=== PATIENT | female | born 1980 | race Hispanic/Latino ===

== ENCOUNTER 2020-03-21 10:21 | Inpatient (IN) | payer OTHER ==
[~2020-03-21 10:21] MED LIST: Iopamidol-370 76% 500 ML 1 ML ONE
[2020-03-21 11:08] LABS: ALT (SGPT) 19 U/L (8-55); AST (SGOT) 12 U/L (5-34); Albumin 3.8 g/dL (3.5-5.0); Alkaline Phosphatase 110 U/L (40-110); Anion Gap 16 mmol/L (10-20); BUN (Urea Nitrogen) 7 mg/dL (7.0-18.7); Bilirubin, Total 1.6 mg/dL (0.2-1.2); Calc. Creatinine Clearance 0 mL/min (70-130); Calcium 9.5 mg/dL (7.8-10.44); Carbon Dioxide 26 mmol/L (22-29); Chloride 99 mmol/L (98-107); Estimated GFR-MDRD 75; Globulin 4.1 g/dL (2.4-3.5); Glucose 252 mg/dL (70-105); Lipase Less than 4 U/L (8-78); Potassium 3.5 mmol/L (3.5-5.1); Protein, Total 7.9 g/dL (6.0-8.3); Sodium 137 mmol/L (136-145)
[2020-03-21 11:25] LABS: Band 7 % (5-11); Hemoglobin 14.1 g/dL (12.0-16.0); Lymphocytes 7 % (21-51); MDiff Complete? YES; Mean Corpuscular HGB CONC 32.3 g/dL (32.0-36.0); Mean Corpuscular Hemoglobin 28.5 pg (27.0-31.0); Mean Corpuscular Volume 88.2 fL (78.0-98.0); Mean Platelet Volume 8.5 fL (7.4-10.4); Monocytes 5 % (0-10); Neutrophil 81 % (42-75); Platelet Count 271 thou/uL (130-400); RBC Distribution Width 12.6 % (11.5-14.5); Red Blood Cell (RBC) Count 4.96 mill/uL (4.20-5.40); White Blood Cell (WBC) Count 22.3 thou/uL (4.8-10.8)
[2020-03-21] MEDS ORDERED: cefTRIAXone\\ROCEPHIN 2 GM VIAL ONE (12:15)
[2020-03-21 12:20] LABS: Bilirubin Negative (Negative); Blood, Urine 2+ (Negative); Clarity Extra Turbid (Clear); Glucose, Urine (Dipstick) 100 mg/dL (Negative); Leukocyte 500 Leu/uL (Negative); Nitrite Negative (Negative); Pregnancy Test - Urine (BHCG) Negative (Negative); Pregu Control Background? CLEAR/WHITE (CLR/WHITE); Pregu Control Bar Appear? YES (CONTROL BAR); Protein, Urine (Dipstick) 200 mg/dL (Neg-Trace); Specific Gravity 1.009 (1.002-1.036); Squamous Epithelial 0-3 HPF (0-3); Urobilinogen 6 mg/dL (Less than 2); WBC/HPF Greater than 50 HPF (0-3)
[2020-03-21 12:26] LABS: Bacteria/HPF 4+ HPF (None Seen)
[2020-03-21] MEDS ORDERED: Vancomycin 1.5 GRAM/300 ML BAG 1.5 GM in Premix Bag 1 BAG IVPB SCH ×2 (12:30→14:30)
--- NOTE | 2020-03-21 12:50 | RAD ---
PORTABLE CHEST ONE VIEW: History: Fever, chills. FINDINGS: Heart size and mediastinum are within normal limits. Questionably minimally increased interstitial ch tyson in the right lung base is a somewhat equivocal finding. Clinical correlation regarding cough or any symptoms that would suggest Covid exposure. IMPRESSION: Subtle interstitial change in the right lung base, a somewhat equivocal finding. POS: [facility]
--- NOTE | 2020-03-21 13:14 | CT ---
CT ABDOMEN AND PELVIS PERFORMED WITHOUT CONTRAST ENHANCEMENT: History: Fever, chills, nonproductive cough. FINDINGS: The lung bases show some peripheral ground glass opacities. The possibility of Covid exposure should be a consideration. The liver is borderline in size, measuring 19 cm in length. The spleen, pancreas, and gallbladder reg ions appear unremarkable. Right and left adrenal glands are normal. Right and left kidneys are normal in size. There is perinep hric fat stranding involving the right kidney. There is some minimal prominence to the right collecti ng system, but not grossly dilated. The ureter is not dilated by the perinephric fat stranding does e xtend along a portion of the right ureter. This could indicate a pyelonephritis. The possibility of a passed stone would be another possibility. No significant periaortic or mesenteric adenopathy. The a ppendix is more retrocecal in location. The tip is actually along the inferior margin of the liver. T here is no pelvic lymphadenopathy or mass. IMPRESSION: 1. Some peripheral ground glass lung opacities. This pattern could indicate the possibility of Covid exposure. 2. Moderate perinephric fat stranding involving the right kidney. Also some of the fat stranding exte nding along the proximal right ureter. This could be the sequellae of a passed calculus or related to pyelonephritis. No stone is seen. 3. Incidental note is made of old left sided rib fractures and bilateral parts defects at L4-5 and L5 -S1 with a very mild spondylolithsis of L5 on S1. 4. These findings were discussed with Dr. Becker. POS: [facility] [place]
[2020-03-21] MEDS ORDERED: HumaLOG 300 UNITS/3 ML VIAL SC PRN (13:46)
[2020-03-21] MEDS ORDERED: Dextrose 5% in Water 1,000 ML IV PRN (13:46)
[2020-03-21] MEDS ORDERED: Senokot S 8.6-50 MG TAB PO PRN (13:46)
[2020-03-21] MEDS ORDERED: Sodium Chloride 0.9% 1,000 ML IV SCH (13:46)
[2020-03-21] MEDS ORDERED: Guaifenesin DM 100-10/5 ML UDCUP PO PRN (13:46)
[2020-03-21] MEDS ORDERED: Dextrose 50% Abboject 50 ML SYRINGE SLOW IVP PRN (13:46)
[2020-03-21] MEDS ORDERED: Bisacodyl 10 MG SUPP PR PRN (13:46)
[2020-03-21] MEDS ORDERED: Ondansetron PF 4 MG/2 ML Vial IVP PRN (13:46)
[2020-03-21] MEDS ORDERED: Vancomycin HCl 1.5 GM in Sodium Chloride 0.9% 250 ML 300 ML IVPB SCH (14:15)
[2020-03-21 14:26] LABS: Platelet Count 259 thou/uL (130-400)
[2020-03-21 14:28] LABS: Fibrinogen 891 mg/dL (253-463)
[2020-03-21 14:29] LABS: INR-International Normal Ratio 1.1; PTT 27.9 SEC (22.9-36.1); Prothrombin Time 14.2 SEC (12.0-14.7)
[2020-03-21] MEDS ORDERED: Acetaminophen 325 MG/10.15 ML UDCUP ONE (14:45)
[2020-03-21 14:48] LABS: FSP-Qualitative ABNORMAL (Normal); FSP-Semiquantitative >=5 & <20 mcg/mL (Less than 5)
[2020-03-21] MEDS ORDERED: Furosemide 40 MG/4 ML VIAL ONE (15:03)
[2020-03-21] MEDS ORDERED: Ibuprofen 100 MG/5 ML UDCUP ONE (15:03)
--- NOTE | 2020-03-21 15:41 | CT ---
CTA Angio Chest W WO Con 03/21/2020 2:55 PM Indication: 40-year-old female with possible COVID infection, dyspnea and fever Technique: Multiple CTA images were obtained of the thorax with IV contrast. 3-D rendering: MIP jeffrey nstructed images were created and reviewed. Comparison: No relevant prior studies available. Findings: Pulmonary arteries: No central or segmental pulmonary embolus is evident. Heart and Aorta: Normal appearing. Mediastinum:There are mildly prominent lymph nodes seen within the mediastinum both hilar regions. Mo re prominent lymph nodes within the mediastinum is seen within the subcarinal region measuring 1.3 cm. There is a 1.2 cm right suprahilar hilar lymph node. There is a 1 cm left hilar lymph node. Lungs:There are peripheral subpleural groundglass opacity seen within both lungs. No airspace consoli dation is evident. Pleural space: Clear. Upper Abdomen: There is prominent fatty infiltration of the liver. There is hepatosplenomegaly. Osseous Structures: No acute osseous abnormality. Soft tissues:No abnormality. Other findings:None. Impression: 1. No central or segmental pulmonary embolus. 2. Peripheral subpleural groundglass opacities within both lungs can be seen with atypical infectious processes such as viral pneumonia. This is a pattern that can be seen with COVID infection. Recommend appropriate testing. 3. Mildly prominent lymph nodes within the mediastinum and both hilar regions are suspected to be yolanda ctive in nature. 4. Hepatosplenomegaly with fatty infiltration.
--- NOTE | 2020-03-21 16:19 | HP ---
REASON FOR ADMISSION: Sepsis, urinary tract infection, rule out COVID. HISTORY OF PRESENTING ILLNESS: Please note the entire history was obtained with Official Kyrgyz translation service. The patient complains of fever, chills, and suprapubic pain from yesterday evening. This got worse to the point the patient came to the emergency room here. On arrival, the patient had a temperature of 100.3, which gabrielle up to 105 in a span of 4 hours. No cough or expectoration. No other family members are sick in the house. She apparently got exposed to someone with COVID, this was relayed by a concerned family member 2 hours after me speaking to the ER nurse that the family got exposed to somebody who is COVID positive. PAST MEDICAL AND SURGICAL HISTORY: Diabetes mellitus type 2. No prior surgical history. CURRENT MEDICATION: Metformin 1000 mg twice daily. ALLERGIES: NO KNOWN DRUG ALLERGIES. PERSONAL HISTORY: Does not abuse alcohol or drugs. No history of smoking. FAMILY HISTORY: Both parents are living and healthy. The patient lives with her and 3 children. CODE STATUS: Full. REVIEW OF SYSTEMS: CONSTITUTIONAL: Negative for weight loss or gain, ability to conduct usual activities. SKIN: Negative for rash, itching. EYES: Negative for double vision, pain. ENT/MOUTH: Negative for nose bleeding, neck stiffness, pain, tenderness. CARDIOVASCULAR: Negative for palpitations, dyspnea on exertion, orthopnea. RESPIRATORY: Negative for shortness of breath, wheezing, cough, hemoptysis, fever or night sweats. GASTROINTESTINAL: Negative for poor appetite, abdominal pain, heartburn, nausea , vomiting, constipation, or diarrhea. GENITOURINARY: Negative for urgency, frequency, dysuria, nocturia. MUSCULOSKELETAL: Negative for pain, swelling. NEUROLOGIC/PSYCHIATRIC: Negative for anxiety, depression. ALLERGY/IMMUNOLOGIC: Negative for skin rash, bleeding tendency. PHYSICAL EXAMINATION: GENERAL: The patient is a 40-year-old female who is currently not in any acute distress. VITAL SIGNS: Blood pressure 130/86, pulse 140 per minute, respiratory rate 18, temperature currently 105 degrees. Saturating 95% on room air. NECK: Supple. No elevated JVD. HEENT: Eyes; extraocular muscles intact. Pupils reacting to light. Oral cavity, mucous membranes are dry. No exudates or congestion. CARDIOVASCULAR: S1 and S2 heard, regular rhythm. RESPIRATORY: Air entry 1+ bilateral. No rales or rhonchi. ABDOMEN: Soft. Bowel sounds heard. No tenderness, rigidity, or guarding. No CV angle tenderness. EXTREMITIES: No peripheral edema or calf tenderness. VASCULAR SYSTEM: Peripheral pulses 1+ bilateral. No ischemic ulcerations or gangrene. CENTRAL NERVOUS SYSTEM: No gross focal deficits noted. The patient is alert, awake, oriented well. PSYCHIATRIC: The patient's mood is euthymic. No hallucinations or delusions. LABORATORY DATA: CT of the abdomen and pelvis without contrast done shows peripheral ground-glass lung opacities suggestive of possible COVID exposure. Moderate perinephric fat stranding in the right kidney, this could be a sequelae of her recent passed stone/pyelonephritis. Old left-sided rib fractures seen. CT angio of chest done showed no evidence of PE. There are peripheral subpleural ground-glass opacities within both lungs, seen with atypical infectious process such as viral pneumonia. There is hepatosplenomegaly with fatty infiltration. White count of 22, H and H 14 and 43, platelet count 271 with 81% neutrophils, 7% bands. PT/INR, PTT within normal limits. D-dimer was 3.30. Serum glucose 252, BUN 7, creatinine 0.8. Lactic acid 3.6. Ferritin is 328. CRP 38. AST, ALT, and alkaline phosphatase within normal limits. Total bilirubin is 1.6, albumin is 3.8. TSH 1.40. Lipase is less than 4. UA is strongly positive for UTI. EKG done shows sinus tach at 134 beats per minute. There are signs of LVH seen. CLINICAL IMPRESSION AND PLAN: The patient will be admitted to the COVID unit on telemetry for sepsis, urinary tract infection, and to rule out COVID. She will be on ceftriaxone and vancomycin. CT abdomen does not show any current urinary tract obstruction. We will follow up on the blood and urine cultures that have been obtained and viral PCR for COVID-19. She will be on Lantus 10 units subcu twice daily along with metformin 1000 mg twice daily. She has received a total of 2.5 L of IV fluid in the ER and we will hold off on further IV fluids in view of the patient having tachypnea with suspicion for COVID-19. We will continue to closely monitor her on telemetry as well. Addendum: Her daughter is positive for COVID 19, this information was obtained after talking to family. Job ID: [id number] [facility]
[2020-03-21] MEDS ORDERED: Azithromycin 500 MG in Sodium Chloride 0.9% 250 ML 250 ML IVPB SCH (17:00)
[2020-03-21 17:14] LABS: Lactic Acid 1.8 mmol/L (0.5-2.2)
[2020-03-21 18:20] VITALS: BMI 35.9
[2020-03-21] MEDS: metFORMIN 500 MG TAB PO SCH (19:24)
[2020-03-21] MEDS: Azithromycin 500 MG in Sodium Chloride 0.9% 250 ML 250 ML IVPB SCH (19:24)
[2020-03-21] MEDS: Famotidine 20 MG TAB PO SCH (20:57)
[2020-03-21] MEDS: Insulin Glargine 10 UNITS in Pre-Filled Syringe 1 EACH SC SCH (20:57)
[2020-03-22 04:11] LABS: #Lymphocytes 1.1 thou/uL (1.20-3.40); #Monocytes 1.2 thou/uL (0.11-0.59); #Neutrophils 16.5 thou/uL (1.40-6.50); %Basophils 0.1 % (0.0-1.0); %Eosinophils 0.3 % (0.0-10.0); %Lymphocytes 5.9 % (21.0-51.0); %Monocytes 6.6 % (0.0-10.0); %Neutrophils 87.2 % (42.0-75.0); Hemoglobin 11.7 g/dL (12.0-16.0); Mean Corpuscular HGB CONC 32.9 g/dL (32.0-36.0); Mean Corpuscular Hemoglobin 29.2 pg (27.0-31.0); Mean Corpuscular Volume 88.7 fL (78.0-98.0); Mean Platelet Volume 8.7 fL (7.4-10.4); Platelet Count 185 thou/uL (130-400); RBC Distribution Width 12.4 % (11.5-14.5); Red Blood Cell (RBC) Count 4.02 mill/uL (4.20-5.40); White Blood Cell (WBC) Count 18.9 thou/uL (4.8-10.8)
[2020-03-22 04:32] LABS: ALT (SGPT) 15 U/L (8-55); AST (SGOT) 13 U/L (5-34); Albumin 3.1 g/dL (3.5-5.0); Alkaline Phosphatase 94 U/L (40-110); Anion Gap 12 mmol/L (10-20); BUN (Urea Nitrogen) 9 mg/dL (7.0-18.7); Bilirubin, Total 1.1 mg/dL (0.2-1.2); Calc. Creatinine Clearance 145 mL/min (70-130); Calcium 8.5 mg/dL (7.8-10.44); Carbon Dioxide 24 mmol/L (22-29); Cardiac Risk 1.9 (Less than 4.5); Chloride 103 mmol/L (98-107); Cholesterol 105 mg/dl (< 200 Desired); Estimated GFR-MDRD 83; Globulin 3.3 g/dL (2.4-3.5); Glucose 217 mg/dL (70-105); HDL Cholesterol 54 mg/dL (>60 Neg Risk); LDL Cholesterol, Calculated 39 mg/dL; Potassium 3.1 mmol/L (3.5-5.1); Protein, Total 6.4 g/dL (6.0-8.3); Sodium 136 mmol/L (136-145); Triglycerides 61 mg/dL (Less than 150)
[2020-03-22] MEDS: HumaLOG 300 UNITS/3 ML VIAL SC PRN ×2 (06:09→11:25)
[2020-03-22] MEDS: metFORMIN 500 MG TAB PO SCH ×2 (07:20→17:56)
[2020-03-22] MEDS: Famotidine 20 MG TAB PO SCH ×2 (07:21→21:01)
[2020-03-22] MEDS: Enoxaparin Sodium 40 MG/0.4 ML SYRINGE SC SCH (07:21)
[2020-03-22] MEDS: Acetaminophen 325 MG TAB PO PRN ×4 (07:45→21:21)
[2020-03-22] MEDS: Insulin Glargine 10 UNITS in Pre-Filled Syringe 1 EACH SC SCH ×2 (08:50→21:41)
[2020-03-22] MEDS ORDERED: Potassium Phosphate 12 MMOL in Sodium Chloride 0.9% 250 ML 250 ML IV PRN (09:01)
[2020-03-22] MEDS ORDERED: Potassium Phosphate 9 MMOL in Sodium Chloride 0.9% 100 ML IVPB PRN (09:01)
[2020-03-22] MEDS ORDERED: Potassium Phosphate 15 MMOL in Sodium Chloride 0.9% 250 ML 250 ML IV PRN (09:01)
[2020-03-22] MEDS ORDERED: Potassium Chloride 20 MEQ TAB PO PRN (09:01)
[2020-03-22] MEDS ORDERED: Potassium Chloride 40 MEQ in Sodium Chloride 0.9% 250 ML 250 ML IVPB PRN (09:01)
[2020-03-22] MEDS ORDERED: CCU ELECTROLYTE REPLACEMENT PROTOCOL FS PRN (09:01)
[2020-03-22] MEDS ORDERED: Magnesium 2 GM/50 ML 2 GM in Premix Bag 1 BAG IVPB PRN (09:01)
[2020-03-22] MEDS ORDERED: Magnesium Oxide 400 MG TAB PO PRN ×2 (09:01)
[2020-03-22] MEDS ORDERED: Potassium Chloride 40 MEQ in Premix Bag 1 BAG IVPB PRN (09:01)
[2020-03-22] MEDS ORDERED: PHOS-NAK 1 PKT PACK PO PRN ×2 (09:01)
--- NOTE | 2020-03-22 10:33 | CON ---
DATE OF CONSULTATION: HISTORY OF PRESENT ILLNESS: A 40-year-old female speaks no Vincentian, entire information obtained by the ER information, presented to the ER with fever, chills, nonproductive cough, nausea, vomiting of 3 days' duration. Several family members had been sick. She has a coronavirus serology done, which is still pending. Initial chest x-ray was normal. CT chest did reveal peripheral nonspecific infiltrates. She denies any difficulty breathing. She is having some vague abdominal discomfort from what I am told. PAST MEDICAL HISTORY: Diabetes. PAST SURGICAL HISTORY: Apparently, none. CHRONIC MEDICATIONS: Apparently includes metformin 1000 twice a day. ALLERGIES: NONE. REVIEW OF SYSTEMS: Otherwise, unremarkable. PHYSICAL EXAMINATION: VITAL SIGNS: Temperature is still 101.3, blood pressure , pulse 118, respiratory rate 20, saturations 96%. CHEST: No wheezing or crackles. CARDIAC: Normal S1, S2. No gallops. ABDOMEN: No masses. LABORATORY DATA: White count 18,000, H and H 11 and 35, platelet count is normal. D-dimer 330. C-reactive protein is 38. IMAGING STUDIES: CT, peripheral ground glass bilateral. CT abdomen shows some perinephric stranding in the right kidney, maybe pyelonephritis. Some left-sided rib fractures. ASSESSMENT: 1. Sepsis syndrome, urinary tract infection. 2. Rule out pneumonia, coronavirus. 3. Diabetes. PLAN: 1. Zithromax is on board along with ceftriaxone and vancomycin. 2. Continue supportive care. Await cultures and serology. We will follow. Consultation note, 70 minutes, 50% direct patient care. Job ID: [id number]
--- NOTE | 2020-03-22 10:47 | PDOC.HOSPP ---
- Subjective Encounter Date: 03/22/20 Encounter Time: 08:40 Subjective: no sob or cough abd pain is better, no nausea or vomiting is tolerating oral diet - Objective Vital Signs & Weight: Vital Signs (12 hours) Temp Pulse Ox 03/22/20 08:00 97 03/22/20 07:00 101.3 F H 03/22/20 04:00 99.6 F 03/22/20 00:00 98.0 F Weight Weight 209 lb 7.026 oz Most Recent Monitor Data Heart Rate from ECG 109 NIBP 106/78 NIBP BP-Mean 87 Respiration from ECG 17 SpO2 95 I&O: 03/21/20 03/22/20 03/23/20 06:59 06:59 06:59 Intake Total 250 0 Output Total 900 300 Balance -650 -300 Result Diagrams: 03/22/20 03:52 03/22/20 03:52 Additional Labs: Accuchecks 03/21/20 21:06 POC Glucose 346 H Hospitalist ROS - Medication Medications: Active Medications Generic Name Dose Route Start Last Admin Trade Name Freq PRN Reason Stop Dose Admin Acetaminophen 650 mg 03/21/20 13:46 03/22/20 07:47 Tylenol PO 650 mg Q4H PRN Administration Headache/Fever/Mild Pain (1-3) Enoxaparin Sodium 40 mg 03/22/20 09:00 03/22/20 07:21 Lovenox SC 40 mg 0900 YADIRA Administration Famotidine 20 mg 03/21/20 21:00 03/22/20 07:21 Pepcid PO 20 mg BID YADIRA Administration Insulin Glargine 10 units/ 0.1 mls @ 0 mls/hr 03/21/20 21:00 03/22/20 08:50 Miscellaneous Medication SC 0.1 mls BID YADIRA Administration Azithromycin 500 mg/ Sodium 250 mls @ 250 mls/hr 03/21/20 20:00 03/21/20 19: 24 Chloride IVPB 250 mls 2000 YADIRA Administration Insulin Human Lispro 0 units 03/21/20 13:46 03/22/20 06:09 Humalog SC 6 unit .AGGRESSIVE SLIDING PRN Administration Aggressive Correctional Scale Insulin Human Lispro 0 units 03/21/20 13:46 03/21/20 20:58 Humalog SC 4 unit .BEDTIME SLIDING SC PRN Administration Bedtime Correctional Scale Metformin HCl 1,000 mg 03/21/20 17:00 03/22/20 07:20 Glucophage PO 1,000 mg BID-WM YADIRA Administration - Exam General Appearance: awake alert Eye: PERRL, anicteric sclera ENT: no oropharyngeal lesions, moist mucosa Neck: supple, no JVD Heart: RRR, no murmur Respiratory: no wheezes, no rales Gastrointestinal: soft, non-distended, normal bowel sounds, no guarding, no rigidity Extremities: no cyanosis, no edema Neurological: cranial nerve grossly intact, no focal deficits Psychiatric: normal affect, A&O x 3 Hosp A/P (1) Sepsis Code(s): A41.9 - SEPSIS, UNSPECIFIED ORGANISM Status: Acute Qualifiers: Sepsis type: sepsis due to unspecified organism (2) UTI (urinary tract infection) Status: Acute Qualifiers: Urinary tract infection type: acute cystitis Hematuria presence: without hematuria Qualified Code(s): N30.00 - Acute cystitis without hematuria (3) PNA (pneumonia) Code(s): J18.9 - PNEUMONIA, UNSPECIFIED ORGANISM Status: Suspected Qualifiers: Pneumonia type: due to unspecified organism Laterality: bilateral (4) DM type 2 (diabetes mellitus, type 2) Status: Chronic Qualifiers: Diabetes mellitus meterman insulin use: without meterman use (5) Dyslipidemia Code(s): E78.5 - HYPERLIPIDEMIA, UNSPECIFIED Status: Chronic (6) Obesity (BMI 30-39.9) Code(s): E66.9 - OBESITY, UNSPECIFIED Status: Chronic - Plan is on ceftriaxone, zithromax and vanc no cough or expectoration or sob this am continue humalog coverage, lantus for now electrolyte replacement blood cultures are growing gm -ve rods unlikely to have covid 19, await serology, if covid 19 is-ve, dc droplet and airborne precautions and zithromax hemostable, may transfer to covid unit on telemetry if ccu bed is needed
[2020-03-22] MEDS ORDERED: Vancomycin 1 GM in Premix Bag 1 BAG IVPB SCH ×2 (11:00→21:00)
[2020-03-22] MEDS: cefTRIAXone\\ROCEPHIN 2 GM in Sodium Chloride 0.9% 100 ML IVPB SCH (11:01)
[2020-03-22] MEDS ORDERED: Azithromycin 500 MG in Sodium Chloride 0.9% 250 ML 250 ML IVPB SCH (17:00)
[2020-03-22] MEDS: Azithromycin 500 MG in Sodium Chloride 0.9% 250 ML 250 ML IVPB SCH (21:00)
[2020-03-23] MEDS: Acetaminophen 325 MG TAB PO PRN (04:48)
[2020-03-23] MEDS: HumaLOG 300 UNITS/3 ML VIAL SC PRN ×2 (04:53→12:38)
[2020-03-23 05:43] LABS: #Eosinphils 0.1 thou/uL (0.0-0.7); #Lymphocytes 2.4 thou/uL (1.20-3.40); #Monocytes 1.3 thou/uL (0.11-0.59); %Eosinophils 0.8 % (0.0-10.0); %Lymphocytes 14.1 % (21.0-51.0); %Monocytes 7.5 % (0.0-10.0); %Neutrophils 77.6 % (42.0-75.0); Hemoglobin 12.4 g/dL (12.0-16.0); Mean Corpuscular HGB CONC 33.2 g/dL (32.0-36.0); Mean Corpuscular Hemoglobin 29.4 pg (27.0-31.0); Mean Corpuscular Volume 88.7 fL (78.0-98.0); Mean Platelet Volume 9.2 fL (7.4-10.4); Platelet Count 212 thou/uL (130-400); RBC Distribution Width 12.3 % (11.5-14.5); White Blood Cell (WBC) Count 16.8 thou/uL (4.8-10.8)
[2020-03-23 06:02] LABS: ALT (SGPT) 15 U/L (8-55); AST (SGOT) 17 U/L (5-34); Albumin 3.3 g/dL (3.5-5.0); Alkaline Phosphatase 120 U/L (40-110); Anion Gap 17 mmol/L (10-20); BUN (Urea Nitrogen) 10 mg/dL (7.0-18.7); Bilirubin, Total 0.7 mg/dL (0.2-1.2); Calc. Creatinine Clearance 132 mL/min (70-130); Calcium 9.2 mg/dL (7.8-10.44); Carbon Dioxide 21 mmol/L (22-29); Chloride 102 mmol/L (98-107); Estimated GFR-MDRD 75; Globulin 3.9 g/dL (2.4-3.5); Glucose 194 mg/dL (70-105); Potassium 3.4 mmol/L (3.5-5.1); Protein, Total 7.2 g/dL (6.0-8.3); Sodium 137 mmol/L (136-145)
[2020-03-23] MEDS: Enoxaparin Sodium 40 MG/0.4 ML SYRINGE SC SCH (08:40)
[2020-03-23] MEDS: metFORMIN 500 MG TAB PO SCH ×2 (08:41→17:22)
[2020-03-23] MEDS: Insulin Glargine 10 UNITS in Pre-Filled Syringe 1 EACH SC SCH ×2 (08:41→20:47)
[2020-03-23] MEDS: Famotidine 20 MG TAB PO SCH ×2 (08:41→20:46)
[2020-03-23] MEDS ORDERED: Acetaminophen 500 MG TAB PO PRN (08:48)
[2020-03-23] MEDS ORDERED: Ibuprofen 600 MG TAB PO PRN (08:48)
--- NOTE | 2020-03-23 09:30 | PRG ---
DATE OF SERVICE: 03/23/2020 SUBJECTIVE: This morning, she is awake, alert, responsive, in no distress. OBJECTIVE: VITAL SIGNS: Temperature was 101.7 yesterday and 98 this morning, pulse 83, respirations 20, saturations are 98% on room air, blood pressure 117/75. CHEST: Reveals a questionable right-sided infiltrate. She has no wheezing or crackles. CARDIAC: Normal S1 and S2. No gallops. ABDOMEN: Soft. LABORATORY DATA: White count 16,000. Urine is growing E coli. ASSESSMENT: 1. Escherichia coli urinary tract infection, sensitive to present antibiotic. 2. Questionable pneumonia, coronavirus positive. PLAN: We will put on Maxipime for coronavirus and ceftriaxone for UTI. Pain relief. Supportive care. We will follow. Job ID: [id number]
--- NOTE | 2020-03-23 09:32 | RAD ---
PORTABLE CHEST: DATE: 03/23/2020. PROVIDED CLINICAL HISTORY: Pneumonia. FINDINGS: Comparison 03/21/2020. The cardiac silhouette appears enlarged, which may be at least partially on th e basis of cortical technique. Airspace disease in the lateral right lower lung zone is demonstrated . No evidence for lobar consolidation, pleural fluid, or pneumothorax. IMPRESSION: Airspace disease at the lateral right lung base, compatible with provided clinical history of pneumon ia. POS: [facility]
--- NOTE | 2020-03-23 10:35 | PDOC.HOSPP ---
- Subjective Encounter Date: 03/23/20 Encounter Time: 07:25 Subjective: no sob or palp is ambulating in room and eating well no abd pain or nausea - Objective Vital Signs & Weight: Vital Signs (12 hours) Temp Pulse Resp BP Pulse Ox 03/23/20 08:40 98.2 F 83 20 117/75 03/23/20 08:35 95 03/23/20 07:00 101.7 F H 03/23/20 04:30 99.3 F 112 H 20 128/81 97 03/23/20 00:00 99.8 F H 96 20 120/70 Weight Weight 209 lb 7.026 oz Most Recent Monitor Data Heart Rate from ECG 133 NIBP 141/94 NIBP BP-Mean 109 Respiration from ECG 21 SpO2 97 I&O: 03/22/20 03/23/20 03/24/20 06:59 06:59 06:59 Intake Total 250 1740 Output Total 900 600 Balance -650 1140 Result Diagrams: 03/23/20 05:31 03/23/20 05:31 Additional Labs: Accuchecks 03/23/20 03/22/20 03/22/20 04:49 21:21 16:40 POC Glucose 163 H 179 H 187 H 03/22/20 11:25 POC Glucose 196 H Hospitalist ROS - Medication Medications: Active Medications Generic Name Dose Route Start Last Admin Trade Name Freq PRN Reason Stop Dose Admin Acetaminophen 650 mg 03/21/20 13:46 03/23/20 04:48 Tylenol PO 650 mg Q4H PRN Administration Headache/Fever/Mild Pain (1-3) Enoxaparin Sodium 40 mg 03/22/20 09:00 03/23/20 08:40 Lovenox SC 40 mg 0900 YADIRA Administration Famotidine 20 mg 03/21/20 21:00 03/23/20 08:41 Pepcid PO 20 mg BID YADIRA Administration Ceftriaxone Sodium 2 gm/ 100 mls @ 200 mls/hr 03/22/20 12:00 03/22/20 11:01 Sodium Chloride IVPB 100 mls 1200 YADIRA Administration Insulin Glargine 10 units/ 0.1 mls @ 0 mls/hr 03/21/20 21:00 03/23/20 08:41 Miscellaneous Medication SC 0.1 mls BID YADIRA Administration Azithromycin 500 mg/ Sodium 250 mls @ 250 mls/hr 03/21/20 20:00 03/22/20 21: 00 Chloride IVPB 250 mls 2000 YADIRA Administration Insulin Human Lispro 0 units 03/21/20 13:46 03/23/20 04:53 Humalog SC 3 unit .AGGRESSIVE SLIDING PRN Administration Aggressive Correctional Scale Insulin Human Lispro 0 units 03/21/20 13:46 03/21/20 20:58 Humalog SC 4 unit .BEDTIME SLIDING SC PRN Administration Bedtime Correctional Scale Metformin HCl 1,000 mg 03/21/20 17:00 03/23/20 08:41 Glucophage PO 1,000 mg BID-WM YADIRA Administration Ondansetron HCl 4 mg 03/21/20 13:46 03/23/20 05:52 Zofran IVP 4 mg Q6H PRN Administration Nausea/Vomiting Sodium Chloride 10 ml 03/23/20 09:00 03/23/20 09:05 Flush - Normal Saline IVF 10 ml Q12HR YADIRA Administration - Exam General Appearance: awake alert Eye: PERRL, anicteric sclera ENT: no oropharyngeal lesions, moist mucosa Neck: supple, no JVD Heart: RRR, no murmur Respiratory: no wheezes, no rales, rhonchi Gastrointestinal: soft, non-tender, non-distended, normal bowel sounds Extremities: no cyanosis, no edema Neurological: cranial nerve grossly intact, no focal deficits Psychiatric: normal affect, A&O x 3 Hosp A/P (1) Sepsis Code(s): A41.9 - SEPSIS, UNSPECIFIED ORGANISM Status: Acute Qualifiers: Sepsis type: Escherichia coli Sepsis acute organ dysfunction status: with acute organ dysfunction Severe sepsis acute organ dysfunction type: acute respiratory failure Acute respiratory failure type: with hypoxia Severe sepsis shock status: without septic shock Qualified Code(s): A41.51 - Sepsis due to Escherichia coli [E. coli]; R65.20 - Severe sepsis without septic shock; J96.01 - Acute respiratory failure with hypoxia (2) UTI (urinary tract infection) Status: Acute Qualifiers: Urinary tract infection type: acute cystitis Hematuria presence: without hematuria Qualified Code(s): N30.00 - Acute cystitis without hematuria (3) DM type 2 (diabetes mellitus, type 2) Status: Chronic Qualifiers: Diabetes mellitus shelter insulin use: without shelter use (4) Dyslipidemia Code(s): E78.5 - HYPERLIPIDEMIA, UNSPECIFIED Status: Chronic (5) Obesity (BMI 30-39.9) Code(s): E66.9 - OBESITY, UNSPECIFIED Status: Chronic (6) Pneumonia due to COVID-19 virus Code(s): U07.1 - COVID-19; J12.89 - OTHER VIRAL PNEUMONIA Status: Acute (7) E coli bacteremia Code(s): R78.81 - BACTEREMIA; B96.20 - UNSP ESCHERICHIA COLI THE CAUSE OF DISEASES CLASSD ELSWHR Status: Acute - Plan is on ceftriaxone, zithromax no cough or expectoration or sob, mild rhonchi on clinical exam continue humalog coverage, lantus, metformin for now electrolyte replacement hemostable to lay on either side or prone while sleeping. to ambulate and sit in chair as tolerated
[2020-03-23] MEDS: cefTRIAXone\\ROCEPHIN 2 GM in Sodium Chloride 0.9% 100 ML IVPB SCH (12:20)
--- NOTE | 2020-03-23 17:51 | CON ---
DATE OF CONSULTATION: 03/23/2020 REASON FOR CONSULTATION: COVID plus a bacteremia with UTI. HISTORY OF PRESENT ILLNESS: A 40-year-old with history of type 2 diabetes, who at the beginning of the month started having coughing spells and intermittent fever. She was afraid that she had COVID, but did not get tested because she was concerned about the disease and did not want it to be identified as having it, so ended up developing additional symptoms including dysuria and sensation of abdominal fullness and fever, which persisted, so she came to the emergency room and was tested positive for COVID. In addition to that, she has bacteremia as described below. She denies headaches. The cough has subsided significantly. She is not dyspneic or chest pain. Does not have diarrhea. No joint symptoms or myalgias. PAST MEDICAL HISTORY: 1. Type 2 diabetes. 2. Obesity. SOCIAL HISTORY: She has 3 children. She is , lives in the area. Does not work. Her kids work at [employer] and other fast food places. She does not smoke. Does not drink. No drug use. ALLERGIES: NONE. FAMILY HISTORY: Diabetes type 2. CURRENT MEDICATIONS: 1. Tylenol. 2. Azithromycin. 3. Ceftriaxone. 4. Lovenox. 5. Pepcid. 6. Insulin. PHYSICAL EXAMINATION: VITAL SIGNS: T-max 101.7 recently, blood pressure 134/88, pulse 91, respirations 20, and O2 saturation 97. SKIN: Normal. No lymphadenopathy. HEENT: Ocular movements conjugate. Sclerae white. Pupils are equal. Oral cavity normal. NECK: Supple. No jugular vein distention. LUNGS: Symmetric with clear breath sounds. HEART: S1 and S2. Regular rate. ABDOMEN: Mild tenderness in mostly suprapubic area. EXTREMITIES: No edema. Pulses are normal in lower extremities. NEUROLOGIC: Nonfocal including cognitive function. LABORATORY DATA: Last sodium 137, potassium 3.4, and creatinine 0.83. Liver profile with alkaline phosphatase 120, transaminases and bilirubin are normal, and albumin 3.3. Urinalysis with greater than 50 wbc's. COVID-19 PCR positive. WBC count was 22.3 on arrival and now 16.8, hemoglobin 12.4, and platelets 212. Chest x-ray with airspace disease in the right lung base. She had an abdomen and pelvis CT a day before yesterday with perinephric fat stranding on the right side and the she has ground-glass lung opacities. Chest CT angio was negative. ASSESSMENT: 1. Type 2 diabetes. 2. COVID-19 pneumonia, mild. 3. Cystitis with pyelonephritis and bacteremia with a quite susceptible strain of Escherichia coli. DISCUSSION: The COVID-19 pneumonia is mild, although some patients may deteriorate. In her case, she has been having symptoms now for quite a few weeks, at least 2 weeks, so I do not expect her to deteriorate further, so as soon as her urinary tract issue is treated, then she is better than she can go home on oral quinolones with the usual duration of therapy, there is no evidence of obstruction or neurogenic bladder identified at the moment. Job ID: [id number]
[2020-03-24 05:23] LABS: #Eosinphils 0.2 thou/uL (0.0-0.7); #Lymphocytes 1.9 thou/uL (1.20-3.40); #Monocytes 1.3 thou/uL (0.11-0.59); #Neutrophils 5.9 thou/uL (1.40-6.50); %Basophils 0.5 % (0.0-1.0); %Eosinophils 1.7 % (0.0-10.0); %Lymphocytes 20.3 % (21.0-51.0); %Monocytes 14.1 % (0.0-10.0); %Neutrophils 63.4 % (42.0-75.0); Hemoglobin 11.2 g/dL (12.0-16.0); Mean Corpuscular Hemoglobin 28.9 pg (27.0-31.0); Mean Corpuscular Volume 87.6 fL (78.0-98.0); Platelet Count 198 thou/uL (130-400); RBC Distribution Width 12.4 % (11.5-14.5); Red Blood Cell (RBC) Count 3.88 mill/uL (4.20-5.40); White Blood Cell (WBC) Count 9.2 thou/uL (4.8-10.8)
[2020-03-24 05:43] LABS: ALT (SGPT) 14 U/L (8-55); AST (SGOT) 13 U/L (5-34); Alkaline Phosphatase 104 U/L (40-110); Anion Gap 13 mmol/L (10-20); BUN (Urea Nitrogen) 9 mg/dL (7.0-18.7); Bilirubin, Total 0.4 mg/dL (0.2-1.2); Calc. Creatinine Clearance 145 mL/min (70-130); Calcium 8.9 mg/dL (7.8-10.44); Carbon Dioxide 25 mmol/L (22-29); Chloride 101 mmol/L (98-107); Estimated GFR-MDRD 83; Globulin 3.7 g/dL (2.4-3.5); Glucose 121 mg/dL (70-105); Potassium 3.2 mmol/L (3.5-5.1); Protein, Total 6.7 g/dL (6.0-8.3); Sodium 136 mmol/L (136-145)
[2020-03-24] MEDS: metFORMIN 500 MG TAB PO SCH ×2 (08:39→17:33)
[2020-03-24] MEDS: Famotidine 20 MG TAB PO SCH ×2 (08:40→21:17)
[2020-03-24] MEDS: Insulin Glargine 10 UNITS in Pre-Filled Syringe 1 EACH SC SCH (08:40)
[2020-03-24] MEDS: Enoxaparin Sodium 40 MG/0.4 ML SYRINGE SC SCH (08:40)
--- NOTE | 2020-03-24 10:05 | PRG ---
DATE OF SERVICE: 03/24/2020 SUBJECTIVE: This morning, she is awake, alert, and responsive. OBJECTIVE: VITAL SIGNS: Temperature 100.1, pulse , respirations 20, saturations 90%, blood pressure 107/71. GENERAL: Denies any cough or wheezing. CHEST: Decreased breath sounds. No wheezing. CARDIAC: Normal S1 and S2. No gallops. ABDOMEN: No mass. LABORATORY DATA: White count 9000. ASSESSMENT: 1. Urinary tract infection Escherichia coli. 2. Coronavirus positive pneumonia. PLAN: Infectious Disease consulted. Switched over to Levaquin. Discontinue Zithromax. Pulmonary will follow at a distance. Call if needed. Job ID: [id number]
--- NOTE | 2020-03-24 12:00 | PDOC.HOSPP ---
- Subjective Encounter Date: 03/24/20 Encounter Time: 09:30 Subjective: no sob, is ambulating in room, eating well no abd pain feels better - Objective Vital Signs & Weight: Vital Signs (12 hours) Temp Pulse Resp BP Pulse Ox 03/24/20 08:57 98.2 F 98 20 115/83 96 03/24/20 05:10 100.1 F H 87 20 107/71 95 03/24/20 01:05 99.3 F 106 H 18 132/75 95 Weight Weight 209 lb 7.026 oz Most Recent Monitor Data Heart Rate from ECG 133 NIBP 141/94 NIBP BP-Mean 109 Respiration from ECG 21 SpO2 97 I&O: 03/23/20 03/24/20 03/25/20 06:59 06:59 06:59 Intake Total 1740 1210 Output Total 600 Balance 1140 1210 Result Diagrams: 03/24/20 05:12 03/24/20 05:12 Additional Labs: Accuchecks 03/24/20 03/24/20 03/23/20 11:12 05:38 21:04 POC Glucose 150 H 126 H 126 H 03/23/20 03/23/20 17:31 12:37 POC Glucose 137 H 224 H Hospitalist ROS - Medication Medications: Active Medications Generic Name Dose Route Start Last Admin Trade Name Freq PRN Reason Stop Dose Admin Acetaminophen 650 mg 03/21/20 13:46 03/23/20 04:48 Tylenol PO 650 mg Q4H PRN Administration Headache/Fever/Mild Pain (1-3) Enoxaparin Sodium 40 mg 03/22/20 09:00 03/24/20 08:40 Lovenox SC 40 mg 0900 YADIRA Administration Famotidine 20 mg 03/21/20 21:00 03/24/20 08:40 Pepcid PO 20 mg BID YADIRA Administration Insulin Human Lispro 0 units 03/21/20 13:46 03/23/20 12:38 Humalog SC 6 unit .AGGRESSIVE SLIDING PRN Administration Aggressive Correctional Scale Insulin Human Lispro 0 units 03/21/20 13:46 03/21/20 20:58 Humalog SC 4 unit .BEDTIME SLIDING SC PRN Administration Bedtime Correctional Scale Levofloxacin 750 mg 03/24/20 06:00 03/24/20 05:28 Levaquin PO 750 mg 0600 YADIRA Administration Metformin HCl 1,000 mg 03/21/20 17:00 03/24/20 08:39 Glucophage PO 1,000 mg BID-WM YADIRA Administration Ondansetron HCl 4 mg 03/21/20 13:46 03/23/20 05:52 Zofran IVP 4 mg Q6H PRN Administration Nausea/Vomiting Sodium Chloride 10 ml 03/23/20 09:00 03/24/20 08:40 Flush - Normal Saline IVF 10 ml Q12HR YADIRA Administration - Exam General Appearance: awake alert Eye: PERRL, anicteric sclera ENT: no oropharyngeal lesions, moist mucosa Neck: supple, no JVD Heart: RRR, no murmur Respiratory: no wheezes, no rales Gastrointestinal: soft, non-tender, non-distended, normal bowel sounds Extremities: no cyanosis, no edema Neurological: cranial nerve grossly intact, no focal deficits Psychiatric: normal affect, A&O x 3 Hosp A/P (1) Sepsis Code(s): A41.9 - SEPSIS, UNSPECIFIED ORGANISM Status: Acute Qualifiers: Sepsis type: Escherichia coli Sepsis acute organ dysfunction status: with acute organ dysfunction Severe sepsis acute organ dysfunction type: acute respiratory failure Acute respiratory failure type: with hypoxia Severe sepsis shock status: without septic shock Qualified Code(s): A41.51 - Sepsis due to Escherichia coli [E. coli]; R65.20 - Severe sepsis without septic shock; J96.01 - Acute respiratory failure with hypoxia (2) UTI (urinary tract infection) Status: Acute Qualifiers: Urinary tract infection type: acute cystitis Hematuria presence: without hematuria Qualified Code(s): N30.00 - Acute cystitis without hematuria (3) DM type 2 (diabetes mellitus, type 2) Status: Chronic Qualifiers: Diabetes mellitus superintendent container terminal insulin use: without superintendent container terminal use (4) Dyslipidemia Code(s): E78.5 - HYPERLIPIDEMIA, UNSPECIFIED Status: Chronic (5) Obesity (BMI 30-39.9) Code(s): E66.9 - OBESITY, UNSPECIFIED Status: Chronic (6) Pneumonia due to COVID-19 virus Code(s): U07.1 - COVID-19; J12.89 - OTHER VIRAL PNEUMONIA Status: Acute (7) E coli bacteremia Code(s): R78.81 - BACTEREMIA; B96.20 - UNSP ESCHERICHIA COLI THE CAUSE OF DISEASES CLASSD ELSWHR Status: Acute - Plan is on levaquin per advice, is off zithromax now. no cough or expectoration or sob, mild rhonchi on clinical exam continue humalog coverage, lantus, metformin for now electrolyte replacement hemostable to lay on either side or prone while sleeping. to ambulate and sit in chair as tolerated likely dc plan in am, d/w daughter [phone] and gave full updates family has 2 rooms, 2 kids and lives there along with her, they dont know if others are -ve for covid, family will make arrangements for her to come home to stay in quarantine in am.
[2020-03-24] MEDS ORDERED: cefTRIAXone\\ROCEPHIN 2 GM in Sodium Chloride 0.9% 100 ML IVPB SCH ×2 (18:00→21:00)
[2020-03-25 06:45] LABS: #Eosinphils 0.3 thou/uL (0.0-0.7); #Lymphocytes 1.4 thou/uL (1.20-3.40); #Monocytes 1.1 thou/uL (0.11-0.59); #Neutrophils 6.3 thou/uL (1.40-6.50); %Basophils 0.1 % (0.0-1.0); %Eosinophils 2.8 % (0.0-10.0); %Lymphocytes 15.7 % (21.0-51.0); %Monocytes 11.8 % (0.0-10.0); %Neutrophils 69.7 % (42.0-75.0); Hemoglobin 11.6 g/dL (12.0-16.0); Mean Corpuscular HGB CONC 32.9 g/dL (32.0-36.0); Mean Corpuscular Hemoglobin 28.8 pg (27.0-31.0); Mean Corpuscular Volume 87.4 fL (78.0-98.0); Mean Platelet Volume 8.7 fL (7.4-10.4); Platelet Count 201 thou/uL (130-400); RBC Distribution Width 12.6 % (11.5-14.5); Red Blood Cell (RBC) Count 4.02 mill/uL (4.20-5.40)
[2020-03-25 06:58] LABS: ALT (SGPT) 16 U/L (8-55); AST (SGOT) 16 U/L (5-34); Albumin 3.1 g/dL (3.5-5.0); Alkaline Phosphatase 93 U/L (40-110); Anion Gap 14 mmol/L (10-20); BUN (Urea Nitrogen) 7 mg/dL (7.0-18.7); Bilirubin, Total 0.3 mg/dL (0.2-1.2); Calc. Creatinine Clearance 157 mL/min (70-130); Calcium 9.1 mg/dL (7.8-10.44); Carbon Dioxide 24 mmol/L (22-29); Chloride 103 mmol/L (98-107); Estimated GFR-MDRD Greater than 90; Globulin 3.7 g/dL (2.4-3.5); Glucose 109 mg/dL (70-105); Potassium 3.1 mmol/L (3.5-5.1); Protein, Total 6.8 g/dL (6.0-8.3); Sodium 138 mmol/L (136-145)
--- NOTE | 2020-03-25 09:10 | PRG ---
DATE OF SERVICE: SUBJECTIVE: This morning, she is awake, alert, and responsive. OBJECTIVE: VITAL SIGNS: Temperature 98, pulse 100, saturations are 90% on room air, blood pressure 130/77. CHEST: No wheezing. No crackles. CARDIAC: Normal S1, S2. No gallops. ABDOMEN: No masses. LABORATORY DATA: Unremarkable. ASSESSMENT: 1. Coronavirus pneumonia, stable. 2. Urinary tract infection, on adequate antibiotics. DISPOSITION: Home any time. I put her on doxycycline for the pneumonia. Job ID: [id number]
[2020-03-25] MEDS: Enoxaparin Sodium 40 MG/0.4 ML SYRINGE SC SCH (09:21)
[2020-03-25] MEDS: metFORMIN 500 MG TAB PO SCH ×2 (09:21→16:25)
[2020-03-25] MEDS: Doxycycline 100 MG CAP PO SCH ×2 (09:21→21:37)
[2020-03-25] MEDS: Famotidine 20 MG TAB PO SCH ×2 (09:21→21:37)
--- NOTE | 2020-03-25 12:44 | PDOC.HOSPP ---
- Subjective Encounter Date: 03/25/20 Encounter Time: 08:50 Subjective: no sob or abdonimal pain feels better - Objective Vital Signs & Weight: Vital Signs (12 hours) Pulse Ox 03/25/20 08:00 97 Weight Weight 209 lb 7.026 oz Most Recent Monitor Data Heart Rate from ECG 133 NIBP 141/94 NIBP BP-Mean 109 Respiration from ECG 21 SpO2 97 I&O: 03/24/20 03/25/20 03/26/20 06:59 06:59 06:59 Intake Total 1210 Balance 1210 Result Diagrams: 03/25/20 06:27 03/25/20 06:27 Additional Labs: Accuchecks 03/24/20 03/24/20 21:31 17:19 POC Glucose 139 H 128 H Hospitalist ROS - Medication Medications: Active Medications Generic Name Dose Route Start Last Admin Trade Name Freq PRN Reason Stop Dose Admin Acetaminophen 650 mg 03/21/20 13:46 03/23/20 04:48 Tylenol PO 650 mg Q4H PRN Administration Headache/Fever/Mild Pain (1-3) Acetaminophen 1,000 mg 03/23/20 08:48 03/24/20 21:18 Tylenol PO 1,000 mg Q6H PRN Administration TEMP > 102 Doxycycline Hyclate 100 mg 03/25/20 09:00 03/25/20 09:21 Vibramycin PO 03/30/20 09:01 100 mg BID YADIRA Administration Enoxaparin Sodium 40 mg 03/22/20 09:00 03/25/20 09:21 Lovenox SC 40 mg 0900 YADIRA Administration Famotidine 20 mg 03/21/20 21:00 03/25/20 09:21 Pepcid PO 20 mg BID YADIRA Administration Ceftriaxone Sodium 2 gm/ 100 mls @ 200 mls/hr 03/24/20 21:00 03/24/20 21:17 Sodium Chloride IVPB 100 mls Q24HR YADIRA Administration Insulin Human Lispro 0 units 03/21/20 13:46 03/23/20 12:38 Humalog SC 6 unit .AGGRESSIVE SLIDING PRN Administration Aggressive Correctional Scale Insulin Human Lispro 0 units 03/21/20 13:46 03/21/20 20:58 Humalog SC 4 unit .BEDTIME SLIDING SC PRN Administration Bedtime Correctional Scale Metformin HCl 1,000 mg 03/21/20 17:00 03/25/20 09:21 Glucophage PO 1,000 mg BID-WM YADIRA Administration Ondansetron HCl 4 mg 03/21/20 13:46 03/23/20 05:52 Zofran IVP 4 mg Q6H PRN Administration Nausea/Vomiting Sodium Chloride 10 ml 03/23/20 09:00 03/25/20 09:21 Flush - Normal Saline IVF 10 ml Q12HR YADIRA Administration - Exam General Appearance: awake alert Eye: PERRL, anicteric sclera ENT: no oropharyngeal lesions, moist mucosa Neck: supple, no JVD Heart: RRR, no murmur Respiratory: no wheezes, no rales Gastrointestinal: soft, non-tender, non-distended, normal bowel sounds Extremities: no cyanosis, no edema Neurological: cranial nerve grossly intact, no focal deficits Psychiatric: normal affect, A&O x 3 Hosp A/P (1) Sepsis Code(s): A41.9 - SEPSIS, UNSPECIFIED ORGANISM Status: Acute Qualifiers: Sepsis type: Escherichia coli Sepsis acute organ dysfunction status: with acute organ dysfunction Severe sepsis acute organ dysfunction type: acute respiratory failure Acute respiratory failure type: with hypoxia Severe sepsis shock status: without septic shock Qualified Code(s): A41.51 - Sepsis due to Escherichia coli [E. coli]; R65.20 - Severe sepsis without septic shock; J96.01 - Acute respiratory failure with hypoxia (2) UTI (urinary tract infection) Status: Acute Qualifiers: Urinary tract infection type: acute cystitis Hematuria presence: without hematuria Qualified Code(s): N30.00 - Acute cystitis without hematuria (3) DM type 2 (diabetes mellitus, type 2) Status: Chronic Qualifiers: Diabetes mellitus intake coordinator insulin use: without intake coordinator use (4) Dyslipidemia Code(s): E78.5 - HYPERLIPIDEMIA, UNSPECIFIED Status: Chronic (5) Obesity (BMI 30-39.9) Code(s): E66.9 - OBESITY, UNSPECIFIED Status: Chronic (6) Pneumonia due to COVID-19 virus Code(s): U07.1 - COVID-19; J12.89 - OTHER VIRAL PNEUMONIA Status: Acute (7) E coli bacteremia Code(s): R78.81 - BACTEREMIA; B96.20 - UNSP ESCHERICHIA COLI THE CAUSE OF DISEASES CLASSD ELSWHR Status: Acute - Plan is on ceftriaxone based on blood culture results no cough or expectoration or sob continue humalog coverage, lantus, metformin for now electrolyte replacement hemostable to lay on either side or prone while sleeping. to ambulate and sit in chair as tolerated d/w daughter [phone] and gave full updates family has 2 rooms, 3 kids (10, 17 & 21yrs old)and lives there along with her, the 3 kids got tested yesterday with nasal swab and are awaiting results. She has a daughter who lives independently and is +ve for covid 19, efforts are on for mother and her to stay together. Will need iv antibiotics for dc plan, PICC line and duration per advice.
--- NOTE | 2020-03-25 14:04 | PRG ---
DATE OF SERVICE: 03/25/2020 SUBJECTIVE: The patient is feeling better. She has no cough or dyspnea or chest pain. The pain in the abdomen has improved. There is no more dysuria. OBJECTIVE: VITAL SIGNS: Her temperature was 100.1 earlier today; now, she is 97.8. Blood pressure 130/70, pulse 100, respirations 18, and O2 saturation 97%. LUNGS: Clear. HEART: S1 and S2, regular rate. ABDOMEN: Soft without tenderness, any longer. NEUROLOGIC: Nonfocal. LABORATORY DATA: White cell count 9.0, hemoglobin 11.6, platelets 201, lymphocytes are normal at 1.4. Microbiology with an Escherichia coli, which resistant to Bactrim. ASSESSMENT AND DISCUSSION: Type 2 diabetes, COVID-19 mild infection, mostly upper respiratory tract infection, not much of pneumonia evidence and then cystitis with pyelonephritis and bacteremia due to quite susceptible strain of Escherichia coli except for quinolones and Bactrim. At this moment, we will switch her to amoxicillin 1 g three times daily, beta-lactams track record with pyelonephritis treatment is not as good as with Bactrim and quinolone, so there is a risk of recrudescence, that is why I recommend a higher dose of amoxicillin and to continue for a longer period of time, a total of 2 weeks. Job ID: [id number] MTDD
--- NOTE | 2020-03-25 15:23 | EKG ---
Test Reason : Blood Pressure : / mmHG Vent. Rate : 134 BPM Atrial Rate : 134 BPM P-R Int : 114 ms QRS Dur : 076 ms QT Int : 280 ms P-R-T Axes : 049 003 -88 degrees QTc Int : 418 ms Sinus tachycardia Left ventricular hypertrophy with repolarization abnormality T wave inversion V4, V5, V6 , I, II, III No STEMI Abnormal ECG Confirmed by CAESAR Aguillon, ELIOT ([id number]), managing editor YADIEL BULLARD ([id number]) on 03/25/2020 3:23:31 PM Referred By: Confirmed By:ELIOT MAYNARD M.D.
[2020-03-25] MEDS: AMOXicillin 250 MG CAP PO SCH ×2 (16:24→21:37)
[2020-03-26 01:19] VITALS: BP 116/73; TEMP 98.3
[2020-03-26 06:05] LABS: #Eosinphils 0.4 thou/uL (0.0-0.7); #Lymphocytes 1.9 thou/uL (1.20-3.40); #Monocytes 1.2 thou/uL (0.11-0.59); #Neutrophils 5.1 thou/uL (1.40-6.50); %Basophils 0.1 % (0.0-1.0); %Eosinophils 4.4 % (0.0-10.0); %Lymphocytes 21.8 % (21.0-51.0); %Monocytes 14.2 % (0.0-10.0); %Neutrophils 59.6 % (42.0-75.0); Hemoglobin 11.5 g/dL (12.0-16.0); Mean Corpuscular HGB CONC 31.7 g/dL (32.0-36.0); Mean Corpuscular Hemoglobin 27.7 pg (27.0-31.0); Mean Corpuscular Volume 87.4 fL (78.0-98.0); Mean Platelet Volume 8.6 fL (7.4-10.4); Platelet Count 251 thou/uL (130-400); RBC Distribution Width 12.6 % (11.5-14.5); Red Blood Cell (RBC) Count 4.15 mill/uL (4.20-5.40); White Blood Cell (WBC) Count 8.6 thou/uL (4.8-10.8)
[2020-03-26 06:28] LABS: ALT (SGPT) 15 U/L (8-55); AST (SGOT) 16 U/L (5-34); Albumin 3.2 g/dL (3.5-5.0); Alkaline Phosphatase 95 U/L (40-110); Anion Gap 11 mmol/L (10-20); BUN (Urea Nitrogen) 7 mg/dL (7.0-18.7); Bilirubin, Total 0.4 mg/dL (0.2-1.2); Calc. Creatinine Clearance 164 mL/min (70-130); Calcium 8.7 mg/dL (7.8-10.44); Carbon Dioxide 29 mmol/L (22-29); Chloride 103 mmol/L (98-107); Estimated GFR-MDRD Greater than 90; Globulin 3.1 g/dL (2.4-3.5); Glucose 117 mg/dL (70-105); Potassium 3.4 mmol/L (3.5-5.1); Protein, Total 6.3 g/dL (6.0-8.3); Sodium 140 mmol/L (136-145)
--- NOTE | 2020-03-26 08:57 | PRG ---
DATE OF SERVICE: 03/26/2020 SUBJECTIVE: This morning awake, alert, and responsive. OBJECTIVE: VITAL SIGNS: Temperature 98, pulse 83, respirations 18, saturations 90% on room air, blood pressure 116/73. LUNGS: No wheezing. No crackles. CARDIAC: Normal S1 and S2. ABDOMEN: Unremarkable. LABORATORY DATA: Unremarkable. IMPRESSION: 1. Urinary tract infection. 2. Bronchitis. 3. Coronavirus disease positive. DISPOSITION: Home quarantine for total of 2 weeks. Job ID: [id number]
[2020-03-26] MEDS: AMOXicillin 250 MG CAP PO SCH (09:08)
[2020-03-26] MEDS: Enoxaparin Sodium 40 MG/0.4 ML SYRINGE SC SCH (09:09)
[2020-03-26] MEDS: Doxycycline 100 MG CAP PO SCH (09:09)
[2020-03-26] MEDS: metFORMIN 500 MG TAB PO SCH (09:09)
[2020-03-26] MEDS: Famotidine 20 MG TAB PO SCH (09:09)
--- NOTE | 2020-03-26 17:25 | DIS ---
DATE OF ADMISSION: 03/21/2020 DATE OF DISCHARGE: 03/26/2020 DISCHARGE DISPOSITION: To home. PRIMARY DISCHARGE DIAGNOSES: COVID-19 pneumonia, sepsis with E coli bacteremia and urinary tract infection, diabetes mellitus type 2, dyslipidemia, and obesity. PROCEDURES DONE DURING HOSPITALIZATION: CT chest with and without contrast done showed no evidence of PE. There are peripheral subpleural ground-glass opacities within both lungs suggestive of viral pneumonia. Hepatosplenomegaly with fatty infiltration was seen. CT abdomen and pelvis without contrast done showed right kidney moderate perinephric fat stranding. There is also some fat stranding extending to the proximal right ureter suggestive of possible recent passage of stone. Blood cultures 2/2 grew E coli sensitive to all antibiotics except Levaquin and Bactrim. Urine culture grew E coli with similar sensitivity pattern. Admitting white count was 22.3, discharge numbers of 8.6, H and H 11 and 36, platelet count 251. D-dimer was 3.30. CRP was 38.6. Ferritin 328.5. Discharge BUN and creatinine are 7 and 0.6. Total cholesterol 105, triglyceride 61, LDL 39, HDL 54, TSH 1.40. Urine test was negative. COVID-19 PCR was positive. DISCHARGE MEDICATIONS: 1. Amoxicillin 1 g p.o. 3 times daily for 2 weeks. 2. Albuterol inhaler q.6 hourly p.r.n. 3. Metformin extended release 1 g p.o. twice daily. ALLERGIES: NO KNOWN DRUG ALLERGIES. INPATIENT CONSULT: 1. Dr. Garcia for Pulmonology and Critical Care. 2. Dr. Shukla for Infectious Disease. DISCHARGE PLAN: The patient to follow up with her primary care physician in 1 week, and she also needs to follow up with Dr. Shukla in 2 weeks. BRIEF COURSE DURING HOSPITALIZATION: The patient initially came to ER with complaints of suprapubic pain along with fever. She had a temperature of 100.3 and this fever went up to 105 in a span of 4 hours in the ER. Also, the patient's UA was strongly positive for UTI and the CAT scan confirming right-sided pyelonephritis with cystitis. A family member her daughter was positive for COVID and might have been exposed to her. In view of this, a COVID-19 PCR was also done in the ER. She was on IV antibiotics all through her stay for UTI and she was on Zithromax for the COVID-19 pneumonia. Her Zithromax was discontinued after three days. The patient remained hemodynamically stable with no further decompensation seen. She was on room air from last 3 days, ambulating and eating well. Her white count returned to normal in 72 hours. She has been afebrile the last 36 hours now. She was counseled with regard to continuing quarantine at home for at least 10 to 12 days. She needs to follow up with her primary care physician in 1 week. She is otherwise hemodynamically stable and will be shortly discharged home. Please see a [id number] documentation for the day of discharge on [facility]. Job ID: [id number] MTDD
== END 2020-03-26 12:24 | disposition home or self-care (01) | DRG 177 ==
LOC: ERS 10:21 → CCU 18:11 → T4-A 03-22 15:52
PROVIDERS: ADMIT Internal Medicine; ATTEND Internal Medicine
PROC: 8E0ZXY6 Isolation (ICD-10-PCS; principal; 2020-03-21)
DX: U07.1 COVID-19 (principal); A41.51 Sepsis due to Escherichia coli [E. coli]; J12.89 Other viral pneumonia; J96.01 Acute respiratory failure with hypoxia; R65.20 Severe sepsis without septic shock; N30.00 Acute cystitis without hematuria; E11.9 Type 2 diabetes mellitus without complications; E78.5 Hyperlipidemia, unspecified; E66.9 Obesity, unspecified; Z68.35 Body mass index [BMI] 35.0-35.9, adult; Z79.84 Long term (current) use of oral hypoglycemic drugs
CPT/HCPCS: 36415; 36416; 71045; 71275; 74176; 80053; 80061; 81003; 81015; 81025; 82728; 83605; 83690; 84443; 84484; 85025; 85049; 85300; 85362; 85379; 85384; 85610; 85730; 86140; 87040; 87077; 87086; 87149; 87186; 87635; 93005; 96361; 96365; 96367; J0456; J0696; J1650; J1815; J1940; J2405; J3370; J3490; J7050; Q9967; U0003

== ENCOUNTER 2020-04-14 14:57 | Outpatient (CLI) | payer OTHER, SELFPAY ==
--- NOTE | 2020-04-14 15:21 | RAD ---
Chest 2 views HISTORY: Dyspnea. COMPARISON: 03/23/2020. FINDINGS: Cardiac silhouette and pulmonary vasculature are unremarkable. Mediastinum is midline. No confluent airspace consolidation, pneumothorax, or pleural fluid. IMPRESSION : No active cardiopulmonary abnormalities are demonstrated.
== END 2020-04-14 14:58 | disposition home or self-care (01) ==
LOC: RAD 14:57
PROVIDERS: ATTEND Internal Medicine Pulmonary Disease
DX: R06.00 Dyspnea, unspecified (principal)
CPT/HCPCS: 71046

== ENCOUNTER 2020-04-14 16:31 | Emergency (ER) | payer OTHER, SELFPAY ==
[2020-04-15 11:23] LABS: SARS-CoV-2 MS2 Positive; SARS-CoV-2 N Gene Negative; SARS-CoV-2 S Gene Negative; SARS-CoV-2 orf1ab Negative
== END 2020-04-14 16:49 | disposition home or self-care (01) ==
LOC: ER/OP 16:31 → EDSTATUS 17:33
DX: Z53.21 Procedure and treatment not carried out due to patient leaving prior to being seen by health care provider (principal)
CPT/HCPCS: 87635; U0003

== ENCOUNTER 2021-04-19 09:35 | Emergency (ER) | payer OTHER | END 2021-04-19 10:25 | disposition home or self-care (01) | LOC: ERS 09:35 | DX: T22.011A Burn of unspecified degree of right forearm, initial encounter (principal); E11.9 Type 2 diabetes mellitus without complications; X10.2XXA Contact with fats and cooking oils, initial encounter | CPT/HCPCS: 99283 ==